=== PATIENT | female | born 1995 | race Caucasian/White ===

== ENCOUNTER 2020-09-14 22:07 | Emergency (ER) | payer OTHER ==
[~2020-09-14] VITALS: Ht 162.6 cm; Wt 90.7 kg
[2020-09-14 22:22] VITALS: BP 113/54; Ht 162.6 cm; Wt 90.7 kg
== END 2020-09-14 23:13 | disposition left against medical advice (07) ==
LOC: ED 22:07
DX: Z53.21 Procedure and treatment not carried out due to patient leaving prior to being seen by health care provider (principal)